=== PATIENT | female | born 1950 | race Caucasian/White ===

== ENCOUNTER 2016-07-11 07:49 | Emergency (ER) | payer OTHER ==
[~2016-07-11] VITALS: Ht 165.1 cm; Wt 120.0 kg
[2016-07-11 07:49] VITALS: Ht 165.1 cm; Wt 120.0 kg
[~2016-07-11 07:49] MED LIST: AMLO-147 PO; CANA1TAB2 PO; CARB1TAB42 PO; DOCU250C68 PO; LINA5TAB PO; NPH10OT BOTH EARS; PANT40TA4 PO; VALS320T11; VIT D3 PO
[2016-07-11] MEDS ORDERED: SOD CHLORIDE 0.9% 500 ML IV STA (07:57)
[2016-07-11] MEDS ORDERED: IOHEXOL 300MG/ML 150 ML BTL ONE (08:03)
[2016-07-11] MEDS ORDERED: SOD CHLORIDE 0.9% 100 ML ONE (08:03)
[2016-07-11] MEDS ORDERED: IOHEXOL 350MG/ML 50 ML BTL ONE (08:05)
[2016-07-11] MEDS ORDERED: IOHEXOL 100 ML ONE (08:05)
[2016-07-11] MEDS ORDERED: IOHEXOL 0 ML ONE (08:05)
--- NOTE | 2016-07-11 08:16 | RADRPT ---
PROCEDURE: CT Brain without contrast. CLINICAL INDICATION: Possible Stroke TECHNIQUE: CT scan of the brain was performed on a multidetector high-resolution CT scan. Axial im aging was obtained of the brain without contrast administration. Coronal and sagittal reformatted i mages were obtained from the axial source images. Standard CT scan of the head without contrast prot ocols were performed. The total exam CTDI equals 42.56 mGy and the total exam DLP equals 720.23 mGy-cm. One or more of the following dose reduction techniques were used: - Automated exposure control. - Adjustment of the mA and/or kV according to patient size. Use of iterative reconstruction technique. COMPARISON: CT scan of the head without contrast 11/05/2012. FINDINGS: The ventricular system is normal in size without midline shift. There is mild generalized cerebral volume loss. There is mild periventricular nonspecific deep white matter changes consistent with ch ronic microvascular ischemic disease. Negative for intracranial masses hemorrhages or midline shift . The paranasal sinuses visualized are unremarkable. The mastoids are unremarkable. The bones and calvarium are intact. IMPRESSION: 1. No significant change. 2. Mild generalized cerebral volume loss and nonspecific chronic microischemic disease without intr acranial masses hemorrhages midline shift. RPTAT:AAJJ Physician Francesca Date Time Electronically viewed and signed by Physician Francesca on 07/11/2016 08:15 /
--- NOTE | 2016-07-11 08:23 | RADRPT ---
PROCEDURE: CT cervical spine without contrast. CLINICAL INDICATION: Trauma and pain TECHNIQUE: Axial imaging was obtained through the cervical spine using a multi-slice CT scanner. [facility] of the cervical spine without contrast protocols were performed. CTDI: 22.16 and DLP: 437.42. One or more of the following dose reduction techniques were used: - Automated exposure control. - Adjustment of the mA and/or kV according to patient size. Use of iterative reconstruction technique. COMPARISON: None. FINDINGS: The patient is slightly rotated to the right and tilted to the right. There is hard atherosclerotic plaque involving the distal left vertebral artery. There is streaky motion artifact particularly i nvolving the more caudal images. Those portions the upper lung poor and airway visualized are unrem arkable. There is no evidence of acute fractures or subluxations. There is straightening of the no rmal cervical lordosis. There is moderate spondylosis involving the anterior C2 through C6 vertebra l levels. There is mild degenerate disk disease of the C4-5 through C6-7 disk levels. There is no evidence of central spinal canal or neural foraminal stenosis IMPRESSION: 1. Artifact as above. 2. No evidence acute fractures or subluxations. 3. Degenerative changes without central spinal canal or neural foraminal stenosis. RPTAT:AAJJ Physician Francesca Date Time Electronically viewed and signed by Physician Francesca on 07/11/2016 08:22 BM/
[2016-07-11 08:25] LABS: ADD SCAN DIFF NO
[2016-07-11 08:27] LABS: BASOPHILS % 0.4 % (0.0-2.0); EOSINOPHILS % 0.4 % (0.0-7.0); HEMATOCRIT 38.4 % (37.0-47.0); HEMOGLOBIN 12.2 g/dl (12.0-16.0); LYMPHOCYTES # 1.1 10^3/ul (0.8-2.9); LYMPHOCYTES % 10.6 % (15.0-51.0); MEAN CORPUSCULAR HEMOGLOBIN 29.8 pg (29.0-33.0); MEAN CORPUSCULAR HGB CONC 31.8 g/dl (32.0-37.0); MEAN CORPUSCULAR VOLUME 93.9 fl (82.0-101.0); MONOCYTE # 0.5 10^3/ul (0.3-0.9); MONOCYTES % 4.9 % (0.0-11.0); NEUTROPHIL # 8.5 10^3/ul (1.6-7.5); NEUTROPHILS % 83.3 % (39.0-77.0); PLATELET COUNT 249 10^3/UL (140-415); RED BLOOD COUNT 4.09 10^6/ul (4.20-5.40); RED CELL DISTRIBUTION WIDTH 14.8 % (11.5-14.5); WHITE BLOOD COUNT 10.2 10^3/ul (4.8-10.8)
[2016-07-11 08:35] LABS: ALBUMIN 3.8 g/dl (3.3-4.9)
[2016-07-11 08:36] LABS: POTASSIUM 4.1 mmol/L (3.5-5.1)
[2016-07-11 08:38] LABS: ALBUMIN/GLOBULIN RATIO 1.18; BILIRUBIN,INDIRECT 0.2 mg/dl (0-1.1); BILIRUBIN,TOTAL 0.2 mg/dl (0.2-1.3); CREATININE 0.71 mg/dl (0.44-1.00)
[2016-07-11 08:39] LABS: CALCIUM 8.8 mg/dl (8.4-10.2)
[2016-07-11 08:50] LABS: TROPONIN-I 0.052 ng/ml (0.00-0.12)
[2016-07-11 08:52] LABS: INR 1.14; PROTIME 14.6 Sec (12.2-14.2); PT RATIO 1.1
[2016-07-11 08:53] LABS: PARTIAL THROMBOPLASTIN TIME 35.7 Sec (25.0-35.0)
[2016-07-11] MEDS ORDERED: ASPI-664 PO (09:40)
[2016-07-11] MEDS ORDERED: CANA100T PO (09:41)
[2016-07-11] MEDS ORDERED: METF1000 PO (09:41)
[2016-07-11] MEDS ORDERED: ATOR20TA38 PO (09:42)
[2016-07-11] MEDS ORDERED: INSU300I SQ (09:42)
[2016-07-11] MEDS ORDERED: CHOL400C PO (09:43)
--- NOTE | 2016-07-11 10:16 | RADRPT ---
PROCEDURE: CTA Head and neck. CLINICAL INDICATION: Stroke. TECHNIQUE: CTA of the head and neck was obtained . Sagittal and coronal reformations and MIPs were provided. Images were obtained prior following the intravenous contrast administration of 85 cc of O mnipaque 350 contrast. The administered radiation dose was CTDI vol = 36.3, 20.64 mGy, DLP = 18.15, 816.92 mGy-cm. Coronal and sagittal as well as maximal intensity projection reformations were obta ined. Direct measurements of vessel diameters was made in reference to measurements of the distal in ternal carotid artery diameter. One or more of the following dose reduction techniques were used: Au tomated exposure control, Adjustment of the mA and/or kV according to patient size, or Use of iterat lori reconstruction technique. COMPARISON: There are no similar studies submitted for comparison.Noncontrast CT of the head from th e same day. FINDINGS: CTA neck: Aorta: Normal in caliber. There are mild vascular calcifications within the aortic arch. Right common carotid artery: Patent without evidence of stenosis. Right internal carotid artery: There is mild atheroma within the anterior carotid bulb. There is th rombus within the right distal internal carotid artery (image 277 series 2) beginning at the C1 leve l. There is long segment thrombus with complete occlusion at the distal right cervical/petrous segm ent. There is nonfilling of the right petrous, right cavernous, and right supraclinoid carotid kevin ry compatible with thrombus/occlusion. There is also thrombus within the right supraclinoid region extending into the right ICA terminus. A small amount of thrombus extends into the proximal right p osterior communicating artery (image 165 series 2) which is patent distally. There is flow within t he right middle cerebral artery as well as the distal segments. Right external carotid artery: Patent without evidence of stenosis. Left common carotid artery: Patent without evidence of stenosis. Left internal carotid artery: There is mild atheroma within the left carotid bulb. Patent without e vidence of stenosis. The distal left cervical carotid arteries tortuous prior to the petrous segment which is a normal variant. Left external carotid artery: Patent without evidence of stenosis. V1/V2 vertebral arteries: The left vertebral artery originates off of the aorta. Patent bilaterally without evidence of stenosis. Vertebral artery dominance: Left. CTA head: Carotid arteries: There is occlusion of the right distal cervical/petrous/supraclinoid carotid arter y as detailed above. There are moderate bilateral cavernous and supraclinoid carotid artery calcifi cations. This causes mild left cavernous carotid artery stenosis. Anterior cerebral arteries: Patent bilaterally without evidence of stenosis. Middle cerebral arteries: Patent bilaterally without evidence of stenosis. Posterior cerebral arteries: Patent bilaterally without evidence of stenosis. Anterior communicating artery: Present. Posterior communicating arteries: Present on the right. There is focal thrombus extending from the right ICA terminus into the proximal right posterior communicating artery as detailed above. Basilar artery: Patent without evidence of stenosis. V3/V4 Vertebral arteries: There are moderate vascular calcifications within the left V4 segment cau sing moderate stenosis. There is questionable filling defects within the bilateral V4 segments at t he skull base (image 215 series 2) in which underlying partial thrombus is not excluded. There is f low noted distally as well as within the basilar artery. Aneurysm: No aneurysm is identified. Venous sinuses: Patent. CT head with contrast: No significant change from recent noncontrast head CT given limitations of contrast. CT neck: There is no cervical adenopathy. IMPRESSION: CTA Head 1. Long segment thrombus within the right distal internal carotid artery from the C1 level extending to the right supraclinoid carotid artery. There is also thrombus extending into the prominent prox imal right posterior communicating artery. There is flow within the right middle cerebral artery br anches as well as the right posterior communicating artery distal portion. Neurointerventional/neuro surgical evaluation is recommended. 2. Questionable filling defects within the bilateral V4 segments at the skull base in which underlyi ng partial thrombus is not excluded. Attention on cerebral angiogram is recommended. 3. Mild left cavernous carotid artery stenosis. 4. Moderate left V4 vertebral artery stenosis. 5. No intracranial aneurysm. CTA Neck 1. Tortuous distal left cervical internal carotid artery prior to the petrous segment which is a nor mal variant. 2. No bilateral internal carotid artery stenosis at the bilateral carotid bulbs by NASCET criteria. 3. The left vertebral artery originates off of the aorta which is a normal variant. Further findings as detailed above. These findings were discussed with Dr. Bennie Saldivar at 10:04 a.m. on July 11, 2016. RPTAT: PP .Rusty Fodera, MD, MD Date Time Electronically viewed and signed by .Rusty Varghese MD, MD on 07/11/2016 10:16 .F/
--- NOTE | 2016-07-11 10:23 | ERA ---
ER Documentation Chief Complaint Date/Time DATE: 07/11/16 TIME: 10:17 Chief Complaint patient FLORENCIA with complaint of left sided weakness and Aloc HPI 65-year-old female history of diabetes, hypertension, Parkinson's disease who presents the emergency room with left-sided weakness. History is somewhat limited. Sandblast Operator use. It appears the patient was in usual state of health when she went to bed around 9 PM last night. Around 3 AM this morning the patient got up her states that she fell and was helped back into bed. Around 7 AM this morning she woke up and she had left-sided weakness. The patient denies any headache or neck pain. She describes weakness to the left upper and lower extremity. She has some left-sided visual field deficit ROS All systems reviewed and are negative except as per history of present illness. Medications Home Meds Reported Medications Ergocalciferol (Vitamin D) 400 Unit Capsule, 400 UNIT PO DAILY, CAP 07/11/16 Insulin Glargine,Hum.rec.anlog (Chepe Yates) 300 Unit/1 Ml Insuln.pen, 20 UNIT SQ QHS 07/11/16 Atorvastatin Calcium* (Atorvastatin Calcium*) 20 Mg Tablet, 20 MG PO QHS, #30 TAB 07/11/16 Metformin Hcl* (Metformin Hcl*) 1,000 Mg Tablet, 1000 MG PO WITH BREAKFAST DINNE , #30 TAB 07/11/16 Canagliflozin (Invokana) 100 Mg Tablet, 100 MG PO DAILY, TAB 07/11/16 Aspirin (Low Dose Aspirin) 81 Mg Tablet.dr, 81 MG PO DAILY, #30 TAB 07/11/16 Carbidopa/Levodopa (Carbidopa-Levo 25-100 Tab Sa) 1 Tab.sa Tablet.sa, 1 TAB.SA PO BID 04/03/15 Canagliflozin/Metformin HCl (Invokamet 50-1,000 mg Tablet) 1 Each Tablet, 1 EACH PO BID, TAB 04/03/15 Docusate Sodium* (Dok*) 250 Mg Capsule, 250 MG PO TID, #60 CAP 04/03/15 Discontinued Reported Medications Pantoprazole (Protonix) 40 Mg Tabec, 40 MG PO DAILY, TAB 04/03/15 Linagliptin (TRADJENTA) 5 Mg Tablet, 5 MG PO DAILY, TAB 04/03/15 [Vit D3] No Conflict Check, 4000 PO DAILY 04/03/15 Amlodipine Besylate* (Amlodipine Besylate*) 10 Mg Tablet, 10 MG PO DAILY 11/05/12 Valsartan* (Diovan*) 320 Mg Tablet, 1 DAILY 08/18/12 Discontinued Scripts Neomycin/Polymyxin/Hydrocort* (Cortisporin* Otic) 10 Ml Susp, 4 DROP BOTH EARS QID for 7 Days, EA Prov:PATRICK CEE NP 10/10/14 Allergies Allergies: Coded Allergies: No Known Drug Allergy (Verified Allergy, Mild, 07/11/16) PMhx/Soc History of Surgery: Yes (CSECTION) Anesthesia Reaction: No Hx Neurological Disorder: Yes (PARKINSONS) Hx Respiratory Disorders: No Hx Cardiac Disorders: Yes (HTN) Hx Psychiatric Problems: No Hx Miscellaneous Medical Probl: No Hx Alcohol Use: No Hx Substance Use: No Hx Tobacco Use: No Smoking Status: Never smoker FmHx Family History: No diabetes Physical Exam Vitals Vital Signs Date Time Temp Pulse Resp B/P Pulse Ox O2 Delivery O2 Flow Rate FiO2 07/11/16 07:49 97.8 59 20 156/91 98 Physical Exam General: Well developed, well nourished, no acute distress Head: Normocephalic, atraumatic. Eyes: Pupils equally reactive, EOM intact ENT: Moist mucous membranes Neck: Supple, no lymphadenopathy, no midline tenderness deformities or step-offs Respiratory: Lungs clear bilaterally, no distress Cardiovascular: RRR, no murmurs, rubs, or gallops Abdominal: Soft, non-tender, non-distended, no peritoneal signs : Deferred MSK: No edema, no unilateral swelling, the patient appears to have pronator drift and weakness to left upper extremity and left lower extremity upper greater than lower. Neurologic: Alert and oriented and moving all 4 extremities but obvious deficits of the left upper and lower extremity with pronator drift, the patient has a small field cut, NIH of 5 Skin: No rash Psych: Normal mood Result Diagram: 07/11/16 0800 07/11/16 0800 Results 24 hrs Laboratory Tests Test 07/11/16 08:00 07/11/16 08:58 White Blood Count 10.210^3/ul Red Blood Count 4.0910^6/ul Hemoglobin 12.2g/dl Hematocrit 38.4% Mean Corpuscular Volume 93.9fl Mean Corpuscular Hemoglobin 29.8pg Mean Corpuscular Hemoglobin Concent 31.8g/dl Red Cell Distribution Width 14.8% Platelet Count 13261^3/UL Mean Platelet Volume 10.0fl Neutrophils % 83.3% Lymphocytes % 10.6% Monocytes % 4.9% Eosinophils % 0.4% Basophils % 0.4% Nucleated Red Blood Cells % 0.0/100WBC Neutrophils # 8.510^3/ul Lymphocytes # 1.110^3/ul Monocytes # 0.510^3/ul Eosinophils # 0.010^3/ul Basophils # 0.010^3/ul Nucleated Red Blood Cells # 0.010^3/ul Prothrombin Time 14.6Sec Prothrombin Time Ratio 1.1 INR International Normalized Ratio 1.14 Activated Partial Thromboplast Time 35.7Sec Sodium Level 146mmol/L Potassium Level 4.1mmol/L Chloride Level 106mmol/L Carbon Dioxide Level 28mmol/L Anion Gap 16 Blood Urea Nitrogen 17mg/dl Creatinine 0.71mg/dl Glucose Level 125mg/dl Hemoglobin A1c 6.4% Calcium Level 8.8mg/dl Total Bilirubin 0.2mg/dl Direct Bilirubin 0.00mg/dl Indirect Bilirubin 0.2mg/dl Aspartate Amino Transf (AST/SGOT) 21IU/L Alanine Aminotransferase (ALT/SGPT) 17IU/L Alkaline Phosphatase 111IU/L Troponin I 0.052ng/ml Total Protein 7.0g/dl Albumin 3.8g/dl Globulin 3.20g/dl Albumin/Globulin Ratio 1.18 Bedside Glucose 106mg/dL Current Medications Medications (Trade) Dose Ordered Sig/Galindo Route PRN Reason Start Time Stop Time Status Last Admin Dose Admin Sodium Chloride (NS) 500 ml @ 500 mls/hr Q1H STAT IV 07/11/16 07:57 07/11/16 08:56 DC 07/11/16 09:04 IV Flush 10 ml 10 ml STK-MED ONCE .ROUTE 07/11/16 08:03 07/11/16 08:04 DC Sodium Chloride (NS) 100 ml @ ud STK-MED ONCE .ROUTE 07/11/16 08:03 07/11/16 08:04 DC Iohexol 150 ml 150 ml STK-MED ONCE .ROUTE 07/11/16 08:03 07/11/16 08:04 DC Iohexol 0 ml @ ud STK-MED ONCE .ROUTE 07/11/16 08:05 07/11/16 08:06 DC Iohexol (Omnipaque) 100 ml @ ud STK-MED ONCE .ROUTE 07/11/16 08:05 07/11/16 08:06 DC Iohexol (Omnipaque 350mg/ ml) 50 ml STK-MED ONCE .ROUTE 07/11/16 08:05 07/11/16 08:06 DC Aspirin (Aspirin) 162 mg ONCE ONCE PO 07/11/16 10:30 07/11/16 10:31 Procedures/MDM EKG, MONITORS, & DIAGNOSTIC IMAGING: EKG: I reviewed and interpreted a 12-lead EKG. Rhythm: Normal sinus rhythm Ectopy: None Arrhythmia: None Intervals: No abnormalities ST segments: No elevations or depressions T waves: No contiguous inversions Interpretation: No acute cardiac ischemia Chest x-ray: I reviewed and interpreted a 1 view of the chest Mediastinum: No enlargement Cardiac silhouette: No cardiomegaly Airspace: Clear lung gaines bilaterally without evidence of pneumothorax Bones: No evidence of fracture Interpretation: No acute cardiopulmonary process CT Brain: IMPRESSION: 1. No significant change. 2. Mild generalized cerebral volume loss and nonspecific chronic microischemic disease without intracranial masses hemorrhages midline shift. CT c spine IMPRESSION: 1. Artifact as above. 2. No evidence acute fractures or subluxations. 3. Degenerative changes without central spinal canal or neural foraminal stenosis. CTA Head and Neck: CTA Head 1. Long segment thrombus within the right distal internal carotid artery from the C1 level extending to the right supraclinoid carotid artery. There is also thrombus extending into the prominent proximal right posterior communicating artery. There is flow within the right middle cerebral artery branches as well as the right posterior communicating artery distal portion. Neurointerventional/ neurosurgical evaluation is recommended. 2. Questionable filling defects within the bilateral V4 segments at the skull base in which underlying partial thrombus is not excluded. Attention on cerebral angiogram is recommended. 3. Mild left cavernous carotid artery stenosis. 4. Moderate left V4 vertebral artery stenosis. 5. No intracranial aneurysm. CTA Neck 1. Tortuous distal left cervical internal carotid artery prior to the petrous segment which is a normal variant. 2. No bilateral internal carotid artery stenosis at the bilateral carotid bulbs by NASCET criteria. 3. The left vertebral artery originates off of the aorta which is a normal variant. Further findings as detailed above. These findings were discussed with Dr. Bennie Saldivar at 10:04 a.m. on July 11, 2016. RPTAT: PP LAB INTERPRETATION: No coagulopathy, no leukocytosis, normal troponin MEDICAL DECISION MAKING: The patient presents with signs and symptoms consistent with stroke syndrome. The patient has left-sided deficit. This is concerning for large vessel disease. CT imaging and CTA have been ordered upon arrival. A stroke code was activated. Please see timing below. The patient is not a TPA candidate given duration of symptoms. It is unclear if the patient truly had a deficit at 3 AM or that was the onset. The patient may be an interventional candidate therefore CTA and stroke code activation was initiated. ER COURSE: Stroke assessment and timing: Onset of symptoms: Unclear, potentially at 3M versus 9 PM yesterday evening Arrival to ED: 0 749 Stroke code activation: 0 [address] scan: 0 [address]: See nursing documentation Conversation(s) with neurology: 0 814 NIHSS: 5 TPA decision-making: Not a TPA candidate given greater than 4.5 hours of duration Stroke neurologist on-call: Dr. Martinez Critical Care Note: Total time: 55min Indication/Organ System Threat: Acute neurologic deficit and stroke code activation that requires emergent evaluation and assessment to prevent neurologic compromising collapse. I spent the above amount of critical care time with the patient, not including billable procedures. This included chart review, consultations, repeat bedside evaluations, and titration of appropriate medications to prevent cardiopulmonary or respiratory collapse. I kept the patient and/or family informed of laboratory and diagnostic imaging results throughout the emergency room course. The patient CTA shows evidence of a proximal thrombus. Given that the patient has an unclear onset of symptoms it is unclear whether the patient would benefit from interventional retrieval. However, a phone call was made to [facility]. I was able to speak to Dr. Poole, reviewed the case and he is accepted the patient. He will send critical care transport. DISPOSITION PLAN: The patient will be transferred to [facility] for higher level of care and management of a stroke syndrome with proximal thrombus. Departure Diagnosis: Primary Impression: Acute ischemic stroke Condition: Stable BENNIE SALDIVAR MD Jul 11, 2016 10:23
[2016-07-11] MEDS ORDERED: ASPIRIN 81 MG TAB PO ONE (10:30)
[2016-07-11 11:08] VITALS: BP 157/85; PULSE 74; RESP 20; TEMP 98.3
--- NOTE | 2016-07-11 11:18 | RADRPT ---
PROCEDURE: Chest Radiograph. CLINICAL INDICATION: Shortness of breath TECHNIQUE: Single frontal chest radiograph. COMPARISON: Chest radiograph 11/05/2012 FINDINGS: The heart is magnified. Atherosclerotic calcifications are present. No infiltrate or effusion is seen. The bones are intact. IMPRESSION: 1. No evidence of acute cardiopulmonary disease. 2. Atherosclerotic vascular disease RPTAT: KK .Chetan Hope MD, MD Date Time Electronically viewed and signed by .Chetan Hope MD, MD on 07/11/2016 11:18 .B/
--- NOTE | 2016-07-11 12:05 | STROKE ---
Date/Time of Note Date/Time of Note DATE: 07/11/16 TIME: 09:53 Patient Information General Patient location: emergency Arrival Date Age 65 Gender female Weight 120 kg POC Glucose Glucose Result Bedside Glucose - 72 Hours Test 07/11/16 08:58 Bedside Glucose 106mg/dL (70-220) Vital Signs Vital Signs Vital Signs Date Time Temp Pulse Resp B/P Pulse Ox O2 Delivery O2 Flow Rate FiO2 07/11/16 07:49 97.8 59 20 156/91 98 Patient History Current Medications Allergies: Coded Allergies: No Known Drug Allergy (Verified Allergy, Mild, 07/11/16) Labs Hematology Labs Hematology Test 07/11/16 08:00 White Blood Count 10.210^3/ul (4.8-10.8) Red Blood Count 4.0910^6/ul (4.20-5.40) Hemoglobin 12.2g/dl (12.0-16.0) Hematocrit 38.4% (37.0-47.0) Mean Corpuscular Volume 93.9fl (82.0-101.0) Mean Corpuscular Hemoglobin 29.8pg (29.0-33.0) Mean Corpuscular Hemoglobin Concent 31.8g/dl (32.0-37.0) Red Cell Distribution Width 14.8% (11.5-14.5) Platelet Count 02959^3/UL (140-415) Mean Platelet Volume 10.0fl (7.4-10.4) Neutrophils % 83.3% (39.0-77.0) Lymphocytes % 10.6% (15.0-51.0) Monocytes % 4.9% (0.0-11.0) Eosinophils % 0.4% (0.0-7.0) Basophils % 0.4% (0.0-2.0) Nucleated Red Blood Cells % 0.0/100WBC (0.0-0.0) Neutrophils # 8.510^3/ul (1.6-7.5) Lymphocytes # 1.110^3/ul (0.8-2.9) Monocytes # 0.510^3/ul (0.3-0.9) Eosinophils # 0.010^3/ul (0.0-0.5) Basophils # 0.010^3/ul (0.0-0.1) Nucleated Red Blood Cells # 0.010^3/ul (0.0-0.0) Chemistry Labs Chemistry Test 07/11/16 08:00 07/11/16 08:58 Sodium Level 146mmol/L (135-144) Potassium Level 4.1mmol/L (3.5-5.1) Chloride Level 106mmol/L (97-110) Carbon Dioxide Level 28mmol/L (21-31) Anion Gap 16 (8-16) Blood Urea Nitrogen 17mg/dl (7-20) Creatinine 0.71mg/dl (0.44-1.00) Glucose Level 125mg/dl (70-220) Hemoglobin A1c 6.4% (0-5.9) Calcium Level 8.8mg/dl (8.4-10.2) Total Bilirubin 0.2mg/dl (0.2-1.3) Direct Bilirubin 0.00mg/dl (0.00-0.20) Indirect Bilirubin 0.2mg/dl (0-1.1) Aspartate Amino Transf (AST/SGOT) 21IU/L (15-46) Alanine Aminotransferase (ALT/SGPT) 17IU/L (13-69) Alkaline Phosphatase 111IU/L (42-121) Troponin I 0.052ng/ml (0.00-0.12) Total Protein 7.0g/dl (6.1-8.1) Albumin 3.8g/dl (3.3-4.9) Globulin 3.20g/dl (1.3-3.2) Albumin/Globulin Ratio 1.18 Bedside Glucose 106mg/dL (70-220) Coagulation Labs: Coagulation Test 07/11/16 08:00 Prothrombin Time 14.6Sec (12.2-14.2) Prothrombin Time Ratio 1.1 INR International Normalized Ratio 1.14 Activated Partial Thromboplast Time 35.7Sec (25.0-35.0) History & Physical Patient History Notes Pt Hx Reviewed History of Present Illness 65yo F presents with acute onset left sided weakness. Patient reports that she went to sleep last night at 9pm. She woke at 3am, and felt weak throughout her body and also fell. She went back to sleep and woke up with left sided weakness and blurred vision. Review of Systems Constitutional: no symptoms reported EENTM: no symptoms reported Respiratory: no symptoms reported Cardiovascular: no symptoms reported Gastrointestinal: no symptoms reported Genitourinary: no symptoms reported Musculoskeletal: no symptoms reported Skin: no symptoms reported Psychiatric/Neurological: no symptoms reported All Other Systems: Reviewed and Negative NIH Stroke Scale NIH Stroke Scale 1A - Level of Conciousness: 0 - Alert keenly [id number] LOC Questions: 0 - Answers both [id number] - LOC Commands: 0 - Performs both tasks2 - Best Gaze: 0 - Normal3 - Visual: 2 - Complete Hemianopia (5)4 - Facial Palsy: 0 - No visual loss5A - Motor Arm - Left: 1 - [id number] - Motor Arm - Right: 0 - No burif2A - Motor Leg - Left: 0 - No [id number] - Motor Leg - Right: 0 - No drift7 - Limb Ataxia: 0 - Absent8 - Sensory: 1 - Mild to moderate loss9 - Best Language: 0 - No aphasia or normalDysarthria: 1 - Mild to [id number] - Extinction and inattentio: 0 - No abnormality Date/Time Recorded DATE: 07/11/16 TIME: 09:53 Submitted By Johan Rojas t-PA Imaging Review Imaging Reviewed: Yes Date/Time Imaging Reviewed DATE: 07/11/16 TIME: 08:53 Imaging Findings No acute changes t-PA Administration Recommendation: No Weight 120 kg Recommedation submitted by Johan Rojas Reason t-PA not Recommended outside time window t-PA Not Recommended Date/Time 07/11/16 08:15 Recommendations Impression Diagnosis acute ischemic stroke Recommendation 65yo F presents with acute onset left sided weakness. Neurological exam is notable for left arm weakness, right facial numbness, and left homonymous hemianopia. I believe the patient has had an acute ischemic stroke involving the posterior circulation. Patient is outside of the time window for TPA or consideration of neurointerventional treatments. I recommend workup to include MRI Brain and transthoracic echocardiogram. Results of CTA of the head and neck are pending. I recommend aspirin 325mg daily. Diagnostic Labs: Lipid Proile Hgb A1C CMP CBC w/Diff Coags Therapy: Physical Therapy Speech Therapy Occupational Therapy Misc. Recommendations: Bedside Swallow Evaluation Pnumatic Compression Devices Stroke Education Smoking Education JOHAN ROJAS Jul 11, 2016 10:49
== END 2016-07-11 11:25 | disposition short-term general hospital (02) ==
LOC: E/R 07:49 → FTE 11:25
DX: I63.9 Cerebral infarction, unspecified (principal); I10 Essential (primary) hypertension; E11.9 Type 2 diabetes mellitus without complications; G93.89 Other specified disorders of brain; Z79.82 Long term (current) use of aspirin; Z79.84 Long term (current) use of oral hypoglycemic drugs
CPT/HCPCS: 36415; 70450; 70496; 70498; 71010; 72125; 80053; 82962; 83036; 84484; 85025; 85610; 85730; 93005; J7040; Q9967; Z7502; Z7610

== ENCOUNTER 2016-07-26 23:12 | Emergency (ER) | payer OTHER ==
[~2016-07-26] VITALS: Ht 160 cm; Wt 86.8 kg
[~2016-07-26 23:12] MED LIST changes: -AMLO-147 PO; +ASPI-664 PO; +ATOR20TA38 PO; +CANA100T PO; +CHOL400C PO; +INSU300I SQ; -LINA5TAB PO; +METF1000 PO; -NPH10OT BOTH EARS; -PANT40TA4 PO; -VALS320T11; -VIT D3 PO
[2016-07-26 23:20] VITALS: Ht 160 cm; Wt 86.8 kg
--- NOTE | 2016-07-26 23:44 | ERD ---
ER Documentation Chief Complaint Date/Time DATE: 07/26/16 TIME: 23:39 Chief Complaint from [facility],sent for bleeding on and off around trach site HPI Patient is a 65-year-old female who recently had a tracheostomy on July 22 after sustaining a large territory ischemic stroke. She is recovering in a skilled nursing, and was noted to have oozing from the tracheostomy site intermittently since 6 PM today. She is not on blood thinners, is on low-dose aspirin. Aspirin was held today. There is no reported trauma to the area, no reported pulsatile bleeding. ROS All systems reviewed and are negative except as per history of present illness. Medications Home Meds Reported Medications Ergocalciferol (Vitamin D) 400 Unit Capsule, 400 UNIT PO DAILY, CAP 07/11/16 Insulin Glargine,Hum.rec.anlog (Chepe Yates) 300 Unit/1 Ml Insuln.pen, 20 UNIT SQ QHS 07/11/16 Atorvastatin Calcium* (Atorvastatin Calcium*) 20 Mg Tablet, 20 MG PO QHS, #30 TAB 07/11/16 Metformin Hcl* (Metformin Hcl*) 1,000 Mg Tablet, 1000 MG PO WITH BREAKFAST DINNE , #30 TAB 07/11/16 Canagliflozin (Invokana) 100 Mg Tablet, 100 MG PO DAILY, TAB 07/11/16 Aspirin (Low Dose Aspirin) 81 Mg Tablet.dr, 81 MG PO DAILY, #30 TAB 07/11/16 Carbidopa/Levodopa (Carbidopa-Levo 25-100 Tab Sa) 1 Tab.sa Tablet.sa, 1 TAB.SA PO BID 04/03/15 Canagliflozin/Metformin HCl (Invokamet 50-1,000 mg Tablet) 1 Each Tablet, 1 EACH PO BID, TAB 04/03/15 Docusate Sodium* (Dok*) 250 Mg Capsule, 250 MG PO TID, #60 CAP 04/03/15 Allergies Allergies: Coded Allergies: No Known Drug Allergy (Verified Allergy, Mild, 07/11/16) PMhx/Soc Past medical history: Diabetes, hypertension, atrial fibrillation, Parkinson's disease, ischemic stroke Surgical history: Tracheostomy, G-tube Social history: Lives in skilled nursing, unknown tobacco or alcohol History of Surgery: Yes (trach placed, CSECTION) Anesthesia Reaction: No Hx Neurological Disorder: Yes (CVA,subdural hemorrhage,cerebral ischemia, PARKINSONS) Hx Respiratory Disorders: Yes (ARF) Hx Cardiac Disorders: Yes (HTN,hyperlipidemia) Hx Psychiatric Problems: No Hx Miscellaneous Medical Probl: Yes (IDDM,dysphagia,morbid obesity) Hx Alcohol Use: No (unknown) Hx Substance Use: No (unknown) Hx Tobacco Use: No (unknown) Smoking Status: Unknown if ever smoked FmHx Unable to obtain Physical Exam Vitals Vital Signs Date Time Temp Pulse Resp B/P Pulse Ox O2 Delivery O2 Flow Rate FiO2 07/26/16 23:20 97.9 115 18 165/127 100 Physical Exam Const: Nonverbal, does not make eye contact Head: Atraumatic Eyes: Normal Conjunctiva, no pallor or icterus ENT: Normal External Ears, Nose and Mouth. Moist mucous membranes Neck: Full range of motion. Tracheostomy with sutures and small amount of clotted blood, no active bleeding. Resp: Clear to auscultation bilaterally, no wheezes, no rales Cardio: Irregularly irregular rhythm, no murmurs Abd: Soft, non tender, non distended. Skin: No petechiae or rashes Ext: No cyanosis, or edema Neur: No purposeful movements, fixed gaze Psych: Flat affect Procedures/MDM MDM: Patient is a 65-year-old female with recent tracheostomy placement who had wound site bleeding. On arrival in the ER the bleeding is stopped. I evacuated clot from the site as best I could, and there is no further bleeding. There is no report of pulsatile bleeding to suggest innominate artery injury. Patient can be safely discharged back to the skilled nursing. Advised that they sent her to the ER if bleeding is not able to be controlled with local pressure , or if there is pulsatile bleeding. I advised that she follow-up with her surgeon who performed a tracheostomy tomorrow for more extensive examination. Departure Diagnosis: Primary Impression: Bleeding from wound Condition: Stable Patient Instructions: Post Op Wound Check, Bleeding Additional Instructions: Follow-up tomorrow with your surgeon who performed the tracheostomy. Return to the ER for bleeding that will not stop with local wound care or for other concerns. GODWIN WINSLOW MD Jul 26, 2016 23:44
== END 2016-07-27 00:03 | disposition home or self-care (01) ==
LOC: E/R 23:12
DX: J95.01 Hemorrhage from tracheostomy stoma (principal); I10 Essential (primary) hypertension; E11.9 Type 2 diabetes mellitus without complications; G20 Parkinson's disease; E66.01 Morbid (severe) obesity due to excess calories; Z68.33 Body mass index [BMI] 33.0-33.9, adult; Z79.4 Long term (current) use of insulin; Z79.84 Long term (current) use of oral hypoglycemic drugs; Z79.82 Long term (current) use of aspirin
CPT/HCPCS: 82962; Z7502; 99282